=== PATIENT | male | born 1960 | race Two or more races ===

== ENCOUNTER 2016-12-16 13:19 | Inpatient (IN) | payer OTHER ==
[~2016-12-16] VITALS: Ht 177.8 cm; Wt 98.9 kg
--- NOTE | 2016-12-16 13:45 | NUR ---
[id number]: ALTERED, ETOH+. BS IN FIELD 139. SEEN BY FOR EVAL. ON OXYGEN MASK. SAFETY AND COMFORT MEASURES PROVIDED. WILL MONITOR.
[2016-12-16 14:00] LABS: BASOPHILS % (AUTO) 0.4 % (0.0-2.0); EOSINOPHILS # (AUTO) 0.1 /CMM (0.0-0.7); EOSINOPHILS % (AUTO) 2.6 % (0.0-6.0); HEMATOCRIT 39 % (39-51); HEMOGLOBIN 13.4 g/dL (13.5-17.5); LYMPHOCYTES % (AUTO) 17.6 % (20.0-44.0); MEAN CORPUSCULAR HEMOGLOBIN 32 PG (26.0-33.0); MEAN CORPUSCULAR HGB CONC 34 g/dl (31.0-36.0); MEAN CORPUSCULAR VOLUME 92 fL (80-96); MONOCYTES # (AUTO) 0.6 /CMM (0.1-1.30); MONOCYTES % (AUTO) 10.3 % (2.0-12.0); NEUTROPHILS % (AUTO) 69.1 % (43.0-81.0); PLATELET COUNT (AUTO) 151 /CMM (150-450); RDW COEFFICIENT OF VARIATION 16.4 (11.5-15.0); RED BLOOD CELL COUNT(AUTO) 4.23 MIL/uL (4.5-6.0); WHITE BLOOD COUNT (AUTO) 5.7 K/uL (4.3-11.0)
[2016-12-16] MEDS ORDERED: IV NS 0.9% 1,000 ML BAG IV ONE ×2 (14:00→15:00)
[2016-12-16 14:27] LABS: ALANINE AMINOTRANSFERASE 121 U/L (12-78); ALBUMIN 3.4 g/dL (3.4-5.0); ALCOHOL, BLOOD 448 mg/dL (0-0); ALKALINE PHOSPHATASE 120 U/L (46-116); ASPARTATE AMINOTRANSFERASE 298 U/L (15-37); BILIRUBIN,DIRECT 0.9 mg/dL (0.0-0.2); BILIRUBIN,TOTAL 2.2 mg/dL (0.2-1.0); CALCIUM, SERUM 8.3 mg/dL (8.5-10.1); CARBON DIOXIDE 28 mmol/L (21-32); CHLORIDE 107 mmol/L (98-107); CREATININE 0.8 mg/dL (0.6-1.3); GLUCOSE 163 mg/dL (74-106); SODIUM SERUM 148 mmol/L (136-145); TOTAL PROTEIN, SERUM 7.7 g/dL (6.4-8.2); UREA NITROGEN, BLOOD 11 mg/dL (7-18)
[2016-12-16 14:35] LABS: POTASSIUM 2.5 mmol/L (3.5-5.1); SALICYLATE < 2.8 mg/dL (2.8-20.0)
[2016-12-16 14:36] LABS: ACETAMINOPHEN < 2 ug/ml (10-30)
[2016-12-16] MEDS ORDERED: Thiamine 100 MG in IV D5W 50 ML IV STA (14:36)
[2016-12-16] MEDS ORDERED: Magnesium 1 GM/2 ML VIAL IV STA (14:36)
[2016-12-16] MEDS ORDERED: POTASSIUM CL. PREMIX PERIPHER. 50 ML IV STA (14:36)
[2016-12-16] MEDS ORDERED: POTASSIUM CL. PREMIX PERIPHER. 50 ML ONE (14:43)
[2016-12-16] MEDS ORDERED: Magnesium 1 GM/2 ML VIAL ONE (14:44)
[2016-12-16] MEDS ORDERED: Magnesium 1GM/D5W 100ML PREMIX 100 ML IV ONE (14:52)
--- NOTE | 2016-12-16 15:00 | NUR ---
PT MEDICATED ORDERED. FC INITIATED, URINE SAMPLE OBTAINED, SENT.
[2016-12-16 15:12] LABS: MAGNESIUM 1.5 mg/dL (1.8-2.4)
[2016-12-16 15:15] LABS: APPEARANCE,URINE Clear (CLEAR); BILIRUBIN,URINE LARGE (NEGATIVE); BLOOD, URINE Trace-intact Ery/uL (NEGATIVE); COLOR,URINE Amber (YELLOW); KETONES,URINE 15 (NEGATIVE); LEUKOCYTE ESTERASE ,URINE Negative (NEGATIVE); NITRITE, URINE Positive (NEGATIVE); PH,URINE 5.5 (5.0-8.0); PROTEIN,URINE 100 mg/dl (NEGATIVE); UGLUCOSE Negative (NEGATIVE)
[2016-12-16 15:23] LABS: BACTERIA,URINE None seen /HPF (None Seen); MUCUS,URINE Few /LPF (None Seen); SQUAMOUS EPITHELIAL CELL,UR Few /HPF (None Seen)
[2016-12-16 15:31] LABS: INR 1.08 (0.87-1.13); PROTHROMBIN TIME 11.6 SECS (9.5-12.7)
--- NOTE | 2016-12-16 16:00 | NUR ---
TOR AT [facility]
--- NOTE | 2016-12-16 16:24 | NUR ---
REPORTB GIVEN TO OBINNA REYNOLDS FOR TELE 105
[2016-12-16 17:01] VITALS: BP 127/76
[2016-12-16] MEDS ORDERED: ONDANSETRON HCL/PF 4 MG/2 ML VIAL IVP PRN (18:00)
[2016-12-16] MEDS ORDERED: MAGNESIUM HYDROXIDE 30 ML UDC PO PRN (18:00)
[2016-12-16] MEDS ORDERED: HYDROCODONE/APAP 5/325MG 1 EACH TABLET PO PRN (18:00)
[2016-12-16] MEDS ORDERED: MAG HYDROX/AL HYDROX/SIMETH 30 ML UDC PO PRN (18:00)
[2016-12-16] MEDS ORDERED: IV 1/2NS 1000 ML 1,000 ML IV PRN (18:00)
[2016-12-16] MEDS ORDERED: ACETAMINOPHEN 325 MG TABLET PO PRN (18:00)
[2016-12-16] MEDS ORDERED: Z GUARD REMEDY 2 OZ OINT TP PRN (18:00)
[2016-12-16] MEDS ORDERED: ZOLPIDEM TARTRATE 5 MG TABLET PO PRN (18:00)
--- NOTE | 2016-12-16 18:01 | NUR ---
RN NOTES ADMITTED A 56Y/O M FROM ER. TRANSPORTED VIA STRETCHER ACCOMPANIED BY BED. UNABLE TO OBTAIN INFORMATION D/T CURRENT MENTAL STATUS. NOTED WITH TRUMPET ON LEFT NARE, ON NRB MASK 15LPM. VS TAKEN AND RECORDED. BODY CHECK DONE, NO MAJOR SKIN ISSUES NOTED. PT NOTED SCAB ON HIS FACE PROBABLY FROM FALL. SAFETY MAINTAINED, CONTACTED NORA FOR ADMIT ORDERS. FREQUENT VISUAL CHECKS MADE, BED ALARM ON. CALL LIGHT WITHIN REACH.
--- NOTE | 2016-12-16 18:09 | NUR ---
RN NOTES PT NOTED REMOVED TRUMPET FROM HIS NOSE, NO DISTRESS NOTED, O2 SAT 99% AT THIS TIME. NORA VELÁZQUEZ
--- NOTE | 2016-12-16 18:56 | NUR ---
RN NOTES PT MORE AWAKE NOW, TRIED TO INTERVIEW TO OBTAIN MORE INFORMATION, PT VERBALIZED HE DOESNT REMEMBER ANYTHING. PLACED ON O2@4LPM VIA NC, SATING 95%. REMINDED PT NOT TO TAKE OUT O2 CANNULA. ORIENTED PT TO UNIT AND CALL LIGHT USE. SAFETY MEASURES IMPLEMENTED
--- NOTE | 2016-12-16 19:44 | NUR ---
TELE-1/HOST AND HOSTESS US CALLED TO SEE IF PT WAS NPO FOR US ABD. I INFORMED THEM THAT PT ATE DINNER. THEY ASKED ME TO KEEP PT NPO POST MIDNIGHT AND TEST WILL BE PERFORMED IN AM. WILL CONTINUE TO MONITOR.
[2016-12-16 20:00] VITALS: BP 114/72
[2016-12-16] MEDS ORDERED: CEFTRIAXONE 1 G in IV D5W 50 ML IV SCH (20:00)
[2016-12-17] VITALS: BP 157/88
[2016-12-17 00:06] VITALS: BP 157/88
--- NOTE | 2016-12-17 02:59 | NUR ---
TELE-1/CREATIVE LEAD PT WANTS TO LEAVE AMA. DR. CHAN INFORMED. PT EXPLAINED RISKS AND BENEFITS OF STAYING IN THE HOSPITAL. PT WILL SIGN AMA. VERBALIZED UNDERSTANDING OF THE SITUATION.
--- NOTE | 2016-12-17 03:14 | NUR ---
TELE-1/REUSE TECHNICIAN PT SIGNED AMA. DRESSED AND ESCORTED TO HOSPITAL ENTRANCE.
--- NOTE | 2016-12-17 03:24 | NUR ---
INCIDENT REPORT COMPLETED. [id number]
[2016-12-17] MEDS ORDERED: PANTOPRAZOLE 40 MG TABLET.DR PO SCH (07:30)
[2016-12-17] MEDS ORDERED: THIAMINE HCL 100 MG TABLET PO SCH (09:00)
== END 2016-12-17 03:00 | disposition left against medical advice (07) | DRG 770 ==
LOC: ER 13:23 → TELE1 16:06
PROVIDERS: ADMIT Nurse Practitioner Acute Care; ATTEND Nurse Practitioner Acute Care
DX: F10.129 Alcohol abuse with intoxication, unspecified (principal); G92 Toxic encephalopathy; E87.0 Hyperosmolality and hypernatremia; K70.10 Alcoholic hepatitis without ascites; E83.42 Hypomagnesemia; E87.6 Hypokalemia; D64.9 Anemia, unspecified; N39.0 Urinary tract infection, site not specified; R82.5 Elevated urine levels of drugs, medicaments and biological substances; D63.8 Anemia in other chronic diseases classified elsewhere; Y90.8 Blood alcohol level of 240 mg/100 ml or more
CPT/HCPCS: 36415; 71010-TC; 80048-TC; 80076-TC; 80305; 81000-TC; 83690-TC; 83735-TC; 85025-TC; 85730-TC; 87081-TC; 87086-TC; A4606; G0480; J0696; J3411; J3475; J3480; J3490; J7030; J7060; Z7610